=== PATIENT | male | born 1960 | race Caucasian/White ===

== ENCOUNTER 2017-02-17 06:32 | Inpatient (IN) | payer BC ==
[2017-02-09 09:43] LABS: BASOPHILS 0.3 %; BASOPHILS ABSOLUTE 0.02 10/3/uL (0.0-0.16); EOSINOPHILS 2.4 %; EOSINOPHILS ABSOLUTE 0.16 10/3/uL (0.0-0.53); HEMATOCRIT 44.1 % (40.0-51.0); HEMOGLOBIN 14.9 g/dL (13.6-17.8); IMMATURE GRANULOCYTES 0.3 %; IMMATURE GRANULOCYTES ABSOLUTE 0.02 10/3/uL (0.0-0.11); LYMPHOCYTES 22.1 %; LYMPHOCYTES ABSOLUTE 1.49 10/3/uL (0.67-4.30); MEAN CORPUS HGB CONC 33.8 g/dL (32.0-36.0); MEAN CORPUSCULAR HEMOGLOB 31.4 pg (26.0-34.0); MEAN PLATELET VOLUME 9.3 fL (9.2-13.0); MONOCYTES ABSOLUTE 0.81 10/3/uL (0.21-1.20); NEUTROPHILS 62.9 %; NEUTROPHILS ABSOLUTE 4.25 10/3/uL (2.02-8.40); PLATELET COUNT 233 10/3/uL (150-400); RBC DISTRIBUTION WIDTH 12.3 % (12.0-16.0); RED CELL COUNT 4.74 10/6/uL (4.7-6.1); WHITE BLOOD CELLS 6.8 10/3/uL (4.5-10.5)
[2017-02-09 09:45] LABS: MANUAL DIFF NO %
[2017-02-09 09:58] LABS: ALBUMIN 3.5 G/DL (3.5-5.0); ALKALINE PHOSPHATASE 78 U/L (45-117); BUN (BLOOD UREA NITROGEN) 14 MG/DL (6-23); CALCIUM, SERUM 8.5 MG/DL (8.5-10.4); CHLORIDE, SERUM 107 MMOL/L (96-112); CO2 (CARBON DIOXIDE) 32 MMOL/L (24-34); CREATININE 0.72 MG/DL (0.70-1.30); GFR AFRICAN AMERICAN 119 ML/MIN (>=60); GFR NON AFRICAN AMERICAN 103 ML/MIN (>=60); GLOBULIN 3.4 G/DL (2.5-4.1); GLUCOSE, SERUM 99 MG/DL (60-99); POTASSIUM, SERUM 3.7 MMOL/L (3.5-5.3); SGOT(AST) 19 U/L (5-40); SGPT(ALT) 35 U/L (5-65); SODIUM, SERUM 142 MMOL/L (135-148); TOTAL BILIRUBIN 0.3 MG/DL (0-1.2); TOTAL PROTEIN 6.9 G/DL (6.0-8.5)
[2017-02-09 10:17] LABS: INTERNATIONAL NORMAL RATI 1.1 UNITS (-); PROTIME (NOT ORD) 14.1 SEC (12.0-14.5)
[2017-02-09 10:18] LABS: PARTIAL THROMBO TIME 27.6 SEC (22.5-37.2)
[2017-02-09 11:17] LABS: WBC (NOT ORDERED) (RFLEX) 10 (0-5)
[2017-02-09 11:33] LABS: ASCORBIC ACID (UR NOT ORDER) NEGATIVE (NEG); BILIRUBIN, URINE NEGATIVE (NEG); KETONE, URINE NEGATIVE (NEG); LEUKOCYTE ESTERASE(NOT OR NEG (NEG)
--- NOTE | ~2017-02-17 | OP ---
Record Of Operation [facility] [address] [place]. [address] NAME: MELVIN OWENS II : 56 STATUS : ADM IN PAT#: [id number] AGE: 56 ADM/REG DATE : 02/17/17 MR#: [id number] REPORT SERV DATE: 02/17/17 DICTATED BY: CARLITOS RUBI III DATE: 02/17/17 REPORT STATUS : Draft TRANSCRIBED BY: MODElizabeth DATE: 02/17/17 DATE OF PROCEDURE: 02/17/2017 PREOPERATIVE DIAGNOSIS: Avascular necrosis, left hip. POSTOPERATIVE DIAGNOSIS: Avascular necrosis, left hip. SURGICAL PROCEDURE PERFORMED: Left total hip arthroplasty using the DePuy system with a size 54 mm [place]oulder cup, size 5 high offset [place] stem, with a 1.5, 36 mm ceramic head ball, and a +4 polyethylene liner. SURGEON: Carlitos Rubi M.D. FINE DINING SERVER: Carlitos. ANESTHESIA: General. ANTIBIOTICS: Vancomycin 1 g and gentamicin 120 mg. COMPLICATIONS: None. ESTIMATED BLOOD LOSS: 120 mL. CRYSTALLOID: 1000 mL. Tranexamic acid 2 g. DRAINS: None. PROCEDURE IN DETAIL: The patient was brought to the operative room, placed on the table in supine position, and general anesthesia was induced. IV vancomycin and gentamicin was given in the operating room, the patient was positioned in the right lateral decubitus position. Left hip and lower extremity were entirely prepped and draped in the usual sterile fashion. Assuring good anesthesia, straight lateral approach was made to the left hip, extending the incision directly over the greater trochanter in line with the femur for approximately 5 to 6 inches. The iliotibial band was incised and self-retaining Charnley retractors were placed in the wound. Anterior one-third abductors were taken off their attachment to the greater trochanter with Bovie electrocautery exposing the femoral neck and head. The femoral head was dislocated with a bone hook and with gentle longitudinal traction and external rotation. Femoral neck osteotomy was made approximately 30 mm from the center of the head. Hohmann retractors were placed around the acetabulum in 3, 6, and 9 o'clock position. Transverse acetabulum labrum was debrided. A power reamer was utilized starting with a 43 going to a size 53. A 54 mm [place]oulder cup was impacted at 45 degrees horizontal with 10 to 15 degrees of anteversion. A hole eliminator was next placed, followed by a +4 polyethylene liner neutral. The hip was then flexed and externally rotated in a sterile pouch off the front of the table. A cookie cutter was used to enter the greater trochanter Record Of Operation [facility] [address] [place]. [address] NAME: MELVIN OWENS II : 56 STATUS : ADM IN PAT#: [id number] AGE: 56 ADM/REG DATE : 02/17/17 MR#: [id number] REPORT SERV DATE: 02/17/17 DICTATED BY: CARLITOS RUBI III DATE: 02/17/17 REPORT STATUS : Draft TRANSCRIBED BY: MODElizabeth DATE: 02/17/17 followed by a T-handled reamer to enter the femoral canal. A lateralizing was next used followed by a power reamer starting with a 1, going up to a size 4-5. Serial broaches were utilized starting with 2, going to size 5. Calcar planer was utilized. Trial reduction was carried out with a high offset 1.5, 36 mm head ball. Good range of motion and stability was noted. Trial broach was removed and the real size 5 high offset [place] stem was impacted with excellent fixation. A 1.5, 36 mm ceramic head ball was added to the Ivey taper trunnion. The hip was reduced and again checked for good range of motion and stability throughout. Thorough irrigation was carried out throughout the procedure with pulse lavage system. Aneesh was used as a coagulant in the wound for bleeding, this was a white powder. The anterior one-third abductor was reattached to the greater trochanter with #5 FiberWire x3, reinforced with #1 Vicryl suture. 60 mL of Nuprin was injected into the wound for postoperative pain control. The iliotibial band was repaired with interrupted figure-of- eight #1 Vicryl suture. Subcutaneous tissue was closed with 2-0 Vicryl and skin was closed using jigar. Sterile Aquacel dressing was applied. The patient tolerated the procedure well and brought to recovery room in satisfactory condition. EMILIE/KIRBY Carlitos Rubi III, M.D. / [id number] CC: Carlitos Rubi III, M.D.
--- NOTE | ~2017-02-17 | CN ---
Consultation Report [facility] [address] [place]. [address] NAME: MELVIN RIVERO II : 56 STATUS : ADM IN [facility]#: [id number] AGE: 56 ADM/REG DATE : 02/17/17 MR#: [id number] REPORT SERV DATE: 02/17/17 DICTATED BY: EVELYN WADE DATE: 02/17/17 REPORT STATUS : Draft TRANSCRIBED BY: MODElizabeth DATE: 02/17/17 CARDIOLOGY CONSULTATION DATE OF CONSULTATION: 02/17/2017 REASON FOR CONSULTATION: Regarding new left bundle-branch block. HISTORY OF PRESENT ILLNESS: Mr. Rivero is a 56-year-old gentleman who underwent a left total hip replacement today. He was being monitored in the postanesthesia care unit and there was evidence of a morphology change on his telemetry suggesting left bundle-branch block pattern. He denied any symptoms associated with this including shortness of breath, chest pain, or chest pressure. The patient has a history of hypertension and takes lisinopril, but has no history of coronary artery disease. PAST MEDICAL HISTORY: Notable for, 1. Hypertension. 2. Mild COPD. 3. Long-term tobacco abuse. FAMILY HISTORY: Notable for premature coronary artery disease in the patient's mother. SOCIAL HISTORY: Long-standing tobacco abuse, quit six years ago. Negative for alcohol or illicit drug use. REVIEW OF SYSTEMS: As noted above. All other systems reviewed and negative. PHYSICAL EXAMINATION: VITAL SIGNS: Blood pressure 125/68, pulse of 103 and sinus tachycardia, respirations 16. GENERAL: Well developed, well nourished. HEENT: No icterus. Good dentition. NECK: Supple. No masses or thyromegaly LUNGS: Breathing comfortably. No rales or wheezes. COR: Normal S1, S2. No S3 or S4. No murmurs, clicks, rubs. No JVD ABD: Soft, nondistended, nontender, no hepatosplenomegaly. EXT: No clubbing, cyanosis or edema. Peripheral pulses 2+/=bilaterally. SKIN: Warm and dry. No visible lesions. MS: Chest wall without deformity, no obvious clavicular fractures. NEURO/PSYCH: Oriented X3. No anxiety or depression. EKG not yet performed. Telemetry demonstrates the evidence for left bundle-branch block. PLAN: New left bundle-branch block, question if this might be rate related as patient has sinus tachycardia. He had a narrow complex morphology on admission. He has no symptoms Consultation Report [facility] [id number] [place]. [address] NAME: MELVIN RIVERO II : 56 STATUS : ADM IN PAT#: [id number] AGE: 56 ADM/REG DATE : 02/17/17 MR#: [id number] REPORT SERV DATE: 02/17/17 DICTATED BY: EVELYN WADE DATE: 02/17/17 REPORT STATUS : Draft TRANSCRIBED BY: KIBRY DATE: 02/17/17 suggestive of myocardial ischemia or infarction. He is denying any symptoms that would be consistent with congestive heart failure. He does, however, have multiple risk factors for coronary artery disease including family history, long-term tobacco use, although patient has quit for last six years, and history of hypertension. I would recommend the followin. Check troponins on q.8 hour basis. 2. Add low-dose metoprolol to current medications. 3. Check echocardiogram to look for any regional wall motion abnormalities or decrease in LV systolic function. 4. The patient will be transferred from the PACU to a place for telemetry monitoring. ENMANUEL/KIRBY Evelyn Wade M.D. / [id number] CC: Carlitos Rubi III, M.D.
--- NOTE | ~2017-02-17 | HP ---
History And Physical [facility] [address] [place]. [address] NAME: MELVIN OWENS II : 56 STATUS : ADM IN [facility]#: [id number] AGE: 56 ADM/REG DATE : 02/17/17 MR#: [id number] REPORT SERV DATE: 02/17/17 DICTATED BY: CARLITOS RUBI III DATE: 02/17/17 REPORT STATUS : Draft TRANSCRIBED BY: MODElizabeth DATE: 02/17/17 DATE OF ADMISSION: 02/17/2017 CHIEF COMPLAINT: Left hip pain. HISTORY OF PRESENT ILLNESS: The patient is a 56-year-old white male who complains of pain in his left hip and has so for the past year. It has gotten worse recently to the point where he is having severe pain in his left hip. Complained of rest pain, night pain, all them relieved with nonsteroidal antiinflammatory medicines. He has had an MRI done on 06/12/2016, which reveals bilateral femoral head osteonecrosis more extensive on the left than the right. X-rays confirm avascular necrosis of his left femoral head and he is admitted for left total hip arthroplasty. Risks, benefits, and expected outcomes have been explained, but not limited to blood clots, infection, neurovascular injuries, limb length discrepancies either real or perceived, postoperative dislocations, intraoperative fractures, component failures, persistent pain, limp, and footdrop. PAST MEDICAL HISTORY: Significant for high blood pressure, asthma, chronic obstructive lung disease, swelling of the ankles. Otherwise, he denies any liver or kidney problems. PREVIOUS SURGERIES: None. MEDICATIONS: Symbicort, lisinopril, meloxicam, Osteo Bi-Flex, hydrocodone, ibuprofen. ALLERGIES: PENICILLIN. SOCIAL HISTORY: Nonsmoker. PHYSICAL EXAMINATION: GENERAL: On physical exam, he is alert, oriented x3. VITAL SIGNS: Stable. HEENT: Normocephalic, atraumatic. Pupils equal, round, reactive to light and accommodation. Extraocular muscles are intact. NECK: Supple. CHEST: Clear. HEART: Regular rate and rhythm without murmur. ABDOMEN: Benign, soft, nontender. Positive bowel sounds. ORTHOPEDIC EXAMINATION: Reveals marked tenderness to his left hip. He has flexion to 90 degrees, internal rotation 20, external rotation 30, abduction 30, adduction 20. A little tenderness with a figure of four positioning. Tender throughout the passive range of motion. LABORATORY DATA: X-rays reveal avascular necrosis of his left hip. PLAN: Admission for left total hip arthroplasty. History And Physical [address] [address] NAME: MELVIN OWENS II : 56 STATUS : ADM IN [facility]#: [id number] AGE: 56 ADM/REG DATE : 02/17/17 MR#: [id number] REPORT SERV DATE: 02/17/17 DICTATED BY: CARLITOS RUBI III DATE: 02/17/17 REPORT STATUS : Draft TRANSCRIBED BY: KIRBY DATE: 02/17/17 TB/KIRBY Carlitos Rubi III, M.D. / [id number] CC: Milind Felipe III, M.D.
[~2017-02-17 06:32] MED LIST: ALBUTEROL INHALER INH; CLARIT10 PO; MOBIC15 MG PO; PRIN20 PO; SYMBICORT 160/41 INH INH
[2017-02-17 12:49] LABS: CPK 281 U/L (0-200); TROPONIN I <0.02 NG/ML (<0.05)
[2017-02-17 12:51] LABS: CK-MB 4.9 NG/ML
[2017-02-18 00:43] LABS: HEMATOCRIT 41.5 % (40.0-51.0); HEMOGLOBIN 13.6 g/dL (13.6-17.8)
[2017-02-19] MEDS ORDERED: ELIQUIS 2.5 MG2.5 MG PO (15:07)
[2017-02-19] MEDS ORDERED: PERCOCET 10/3251 TAB (15:07)
[2017-02-19] MEDS ORDERED: TOPXL25 PO (15:08)
== END 2017-02-19 15:58 | disposition home or self-care (01) | DRG 470 ==
LOC: SDC/OF 06:32 → PACU 10:07 → 1SO 13:42
PROVIDERS: Family Medicine; Internal Medicine Cardiovascular Disease; Orthopaedic Surgery
PROC: 0SRB02A Replacement of Left Hip Joint with Metal on Polyethylene Synthetic Substitute, Uncemented, Open Approach (ICD-10-PCS; principal; 2017-02-17 07:30)
DX: M87.052 Idiopathic aseptic necrosis of left femur (principal); I10 Essential (primary) hypertension; J44.9 Chronic obstructive pulmonary disease, unspecified; I44.7 Left bundle-branch block, unspecified; Z79.899 Other long term (current) drug therapy; Z88.0 Allergy status to penicillin; Z87.891 Personal history of nicotine dependence
CPT/HCPCS: 36415; 71020; 72170; 80053; 81001; 82550; 82553; 84484; 85014; 85018; 85025; 85610; 85730; 86850; 86900; 86901; 87641; 88304; 88311; 93005; 94640; 97110-GP; 97116-GP; 97161-GP; 97165-GO; 97535-GO; A9270-GY; C1776; C8929; J1170; J1580; J1885; J2250; J2270; J2370; J2405; J2710; J2795; J3010; J3370; Q9957